=== PATIENT | female | born 2000 | race Caucasian/White ===

== ENCOUNTER 2022-01-21 07:00 | Observation (INO) | payer MEDICAID, OTHER ==
[~2022-01-21] VITALS: Ht 160 cm; Wt 57.2 kg
[2022-01-21] MEDS ORDERED: PREN1TAB79 PO (07:34)
[2022-01-21] MEDS ORDERED: ACET-2267 PO (07:35)
[2022-01-21 07:42] VITALS: BP 111/63
[2022-01-21 07:44] LABS: BILIRUBIN,URINE NEGATIVE (NEGATIVE); CLARITY,URINE CLOUDY; COLOR,URINE YELLOW; GLUCOSE, URINE (UA) NEGATIVE (NEGATIVE); KETONES,URINE NEGATIVE (NEGATIVE); LEUKOCYTE ESTERASE ,URINE 3+ (NEGATIVE); NITRITE,URINE POSITIVE (NEGATIVE); PROTEIN,URINE TRACE (NEGATIVE)
[2022-01-21 07:45] VITALS: BP 110/63
[2022-01-21 08:13] LABS: RBC,URINE 50-100 /HPF
[2022-01-21 08:14] LABS: AMORPHOUS SEDIMENT,UR LARGE AMOR URATES /LPF; BACTERIA,URINE LARGE /HPF; WBC,URINE 50-100 /HPF
[2022-01-21] MEDS ORDERED: ACETAMINOPHEN 500 MG TAB (TYLENOL) PO ONE (08:45)
[2022-01-21] MEDS ORDERED: IBUPROFEN 800 MG (MOTRIN) TAB PO ONE (08:45)
[2022-01-21 09:22] LABS: BASOPHILS # (AUTO) 0.1 10^3/uL (0.0-0.1); BASOPHILS % (AUTO) 0 % (0-10); EOSINOPHILS % (AUTO) 0 % (0-10); HEMATOCRIT 34 % (35-52); HEMOGLOBIN 11.6 g/dL (11.5-16.0); LYMPHOCYTES % (AUTO) 5 % (12-44); MEAN CORPUSCULAR HEMOGLOBIN 31 pg (25-34); MEAN CORPUSCULAR HGB CONC 34 g/dL (32-36); MEAN CORPUSCULAR VOLUME 92 fL (80-99); MONOCYTES # (AUTO) 0.6 10^3/uL (0.0-1.0); MONOCYTES % (AUTO) 3 % (0-12); NEUTROPHILS # (AUTO) 15.7 10^3/uL (1.8-7.8); NEUTROPHILS % (AUTO) 90 % (42-75); PLATELET COUNT 239 10^3/uL (130-400); WHITE BLOOD COUNT 17.5 10^3/uL (4.3-11.0)
[2022-01-21 09:25] LABS: BILIRUBIN,URINE NEGATIVE (NEGATIVE); CLARITY,URINE CLOUDY; COLOR,URINE YELLOW; GLUCOSE, URINE (UA) NEGATIVE (NEGATIVE); KETONES,URINE NEGATIVE (NEGATIVE); LEUKOCYTE ESTERASE ,URINE 1+ (NEGATIVE); NITRITE,URINE POSITIVE (NEGATIVE); PH,URINE 7.5 (5-9); PROTEIN,URINE TRACE (NEGATIVE)
[2022-01-21 09:41] LABS: BACTERIA,URINE FEW /HPF; RBC,URINE 50-100 /HPF
[2022-01-21 09:49] LABS: BAND NEUTROPHILS 0 %; LYMPHOCYTES % (MANUAL) 3 %; NEUTROPHILS % (MANUAL) 94 %
[2022-01-21 09:50] LABS: BASOPHILS % (MANUAL) 0 %; EOSINOPHILS % (MANUAL) 0 %; MONOCYTES % (MANUAL) 3 %; RBC MORPH NORMAL
[2022-01-21] MEDS ORDERED: D5 LR IV SOLUTION 1,000 ML IV SCH (10:00)
[2022-01-21] MEDS ORDERED: BUTORPHANOL INJ 2 MG/ML (STADOL) VIAL IV PRN (10:00)
[2022-01-21] MEDS ORDERED: ONDANSETRON 4 MG/2 ML (SDV) Z0FRAN IVP PRN (10:00)
[2022-01-21] MEDS ORDERED: ACETAMINOPHEN 500 MG TAB (TYLENOL) PO PRN (10:30)
[2022-01-21] MEDS: ceFAZolin INJECTION 1,000 MG in NS (IVPB) 50 ML IV SCH ×2 (11:00→17:15)
[2022-01-21 13:35] VITALS: BP 110/63
[2022-01-21] MEDS ORDERED: NITR-65 PO (14:44)
[2022-01-21 17:54] VITALS: BP 115/69
--- NOTE | 2022-01-24 10:19 | OB Triage Report ---
Standard Progress Note Progress Notes/Assess & Plan Date Seen by a Provider: Jan 21, 2022 Time Seen by a Provider: 15:00 Expected Date of Delivery: Apr 20, 2022 Gestational Age in Weeks: 27 Gestational Age in Days: 2 LMP/KIYA Comment: See progress/assessment Progress/Assessment & Plan This patient presented at 27 weeks gestation with complaint of pain pressure and back pain. She was found to have a hemorrhagic cystitis. She was treated with 1 dose of Ancef and then converted to Macrobid for discharge home with follow-up in clinic. Principal diagnosis was hemorrhagic cystitis in secondary diagnoses are 27 weeks gestation Patient was discharged with return to clinic instructions and with prescription for Macrobid 100 mg twice a day for 7 days Final Diagnosis 27 weeks gestation with hemorrhagic cystitis HUMBERTO GARBER MD Jan 24, 2022 10:19
== END 2022-01-21 18:08 | disposition home or self-care (01) ==
LOC: LDRP 07:00 → WSo 07:00 → LDRP 09:58
PROVIDERS: ADMIT Obstetrics & Gynecology; ATTEND Obstetrics & Gynecology
DX: O98.212 Gonorrhea complicating pregnancy, second trimester (principal); Z3A.27 27 weeks gestation of pregnancy
CPT/HCPCS: 36415; 81000; 85007; 85027; 87077; 87088; 87210

== ENCOUNTER 2022-04-17 22:23 | Inpatient (IN) | payer MEDICAID ==
[~2022-04-17] VITALS: Ht 162.6 cm; Wt 68.0 kg
[~2022-04-17 22:23] MED LIST: ACET-2267 PO; NITR-65 PO; PREN1TAB79 PO
[2022-04-17 22:45] VITALS: BP 153/87
[2022-04-17 23:00] VITALS: BP 153/87
[2022-04-17 23:12] LABS: BILIRUBIN,URINE NEGATIVE (NEGATIVE); CLARITY,URINE CLEAR; COLOR,URINE YELLOW; GLUCOSE, URINE (UA) NEGATIVE (NEGATIVE); KETONES,URINE NEGATIVE (NEGATIVE); LEUKOCYTE ESTERASE ,URINE TRACE (NEGATIVE); NITRITE,URINE NEGATIVE (NEGATIVE); PROTEIN,URINE NEGATIVE (NEGATIVE)
[2022-04-17] MEDS ORDERED: LIDOCAINE/EPI 2% 1:200,00 (XYLOCAINE) 10 ML VIAL INJ PRN (23:15)
[2022-04-17 23:27] LABS: RBC,URINE RARE /HPF
[2022-04-17 23:28] LABS: BACTERIA,URINE NEGATIVE /HPF
[2022-04-17 23:41] LABS: BASOPHILS % (AUTO) 0 % (0-10); EOSINOPHILS # (AUTO) 0.1 10^3/uL (0.0-0.3); EOSINOPHILS % (AUTO) 1 % (0-10); HEMATOCRIT 32 % (35-52); HEMOGLOBIN 10.5 g/dL (11.5-16.0); LYMPHOCYTES # (AUTO) 1.3 10^3/uL (1.0-4.0); LYMPHOCYTES % (AUTO) 7 % (12-44); MEAN CORPUSCULAR HEMOGLOBIN 29 pg (25-34); MEAN CORPUSCULAR HGB CONC 33 g/dL (32-36); MEAN CORPUSCULAR VOLUME 88 fL (80-99); MEAN PLATELET VOLUME 10.1 fL (9.0-12.2); MONOCYTES # (AUTO) 0.8 10^3/uL (0.0-1.0); MONOCYTES % (AUTO) 5 % (0-12); NEUTROPHILS # (AUTO) 14.9 10^3/uL (1.8-7.8); NEUTROPHILS % (AUTO) 86 % (42-75); PLATELET COUNT 236 10^3/uL (130-400); WHITE BLOOD COUNT 17.2 10^3/uL (4.3-11.0)
[2022-04-18] VITALS (68 sets, daily range): BP systolic 112–177; BP diastolic 59–94
[2022-04-18] MEDS ORDERED: fentaNYL 2 mcg/ml BUPIVA 0.125 100 ML ONE (00:06)
[2022-04-18] MEDS: D5 LR IV SOLUTION 1,000 ML IV SCH ×2 (00:13→08:01)
[2022-04-18] MEDS ORDERED: BUPIVACAINE 0.25% 10 ML (SENSORCAINE) VIAL ONE (00:22)
[2022-04-18] MEDS ORDERED: fentaNYL INJ 100 MCG/2 ML AMP ONE (00:23)
[2022-04-18] MEDS ORDERED: LACTATED RINGERS 1,000 ML IV ONE ×2 (01:00)
[2022-04-18] MEDS ORDERED: NALOXONE 0.4 MG/ML 1 ML (NARCAN) VIAL IV PRN ×2 (01:00→13:15)
[2022-04-18] MEDS ORDERED: fentaNYL INJ 100 MCG/2 ML AMP INJ ONE (01:00)
[2022-04-18] MEDS ORDERED: ONDANSETRON 4 MG/2 ML (SDV) Z0FRAN IV PRN (01:00)
[2022-04-18] MEDS: fentaNYL 2 mcg/ml BUPIVA 0.125 100 ML EPI SCH ×2 (01:03→09:03)
[2022-04-18] MEDS ORDERED: OXYTOCIN PRE-MIX DRIP 500 ML IV ONE (08:03)
[2022-04-18] MEDS ORDERED: LIDOCAINE 1% INJ 10 ML VIAL ONE (08:04)
[2022-04-18] MEDS ORDERED: FLU QUADRIvalent (6 months+) 60 mcg/0.5 ml 2022-23 (Fluzone) IM ONE (08:30)
[2022-04-18] MEDS: CATHETER FLUSH 10 ML SYR IV SCH ×2 (09:28→14:15)
--- NOTE | 2022-04-18 09:44 | History & Physical-OB/GYN ---
MAGDALENA SELLERS 04/18/22 0944: OB - Chief Complaint & HPI Date/Time Date of Admission: Date of Admission: Apr 17, 2022 at 22:56 Date seen by a Provider: Apr 18, 2022 Time Seen by a Provider: 09:40 Chief Complaint/History OB-Reason for Admission/Chief: Onset of Labor Hx : 3 Hx Para: 0 Expected Date of Delivery: Apr 20, 2022 Gestational Age in Weeks: 39 Gestational Age in Days: 4 Allergies and Home Medications Allergies Coded Allergies: No Known Drug Allergies (Unverified , 01/21/22) Patient Home Medication List Home Medication List Reviewed: Yes Acetaminophen (Tylenol Extra Strength) 500 Mg Tablet, 1,000 MG PO PRN, (Reported) Entered as Reported by: TAMMY MARTINEZ on 01/21/22 0735 Nitrofurantoin Monohyd/M-Cryst (Macrobid 100 mg Capsule) 100 Mg Capsule, 1 TAB PO BID Prescribed by: TAMYM MARTINEZ on 01/21/22 1444 Vit W-Ca,Fe,FA(<1 mg) ( Vitamins) 27 Mg Iron-800 Mcg Tablet, 1 EACH PO DAILY, (Reported) Entered as Reported by: TAMMY MARTINEZ on 01/21/22 0734 OB - History Hx of Present Care: Yes Obstetrical Complications: None Medical Complications: None Social History/Family History 2nd Hand Smoke Exposure: No Immunizations Influenza Vaccine Up-to-Date: No; Not Current OB - Admission Exam Physical Exam Vitals: Vital Signs 04/18/22 04/18/22 02:00 09:00 Temp 37.2 Pulse 82 Resp 18 B/P (MAP) 136/80 (98) Pulse Ox 98 O2 Delivery Room Air HEENT: NCAT Heart: Rhythm Normal Lungs: Clear Abdomen: Gravid Cervical Dilatation: 5cm Effacement: 75% Station: 0 Membranes: Intact Accelerations: Accelerations Present Decelerations: Variable Decelerations Labs Laboratory Tests Test 04/17/22 22:35 04/17/22 23:20 Range/Units Urine Color YELLOW Urine Clarity CLEAR Urine pH 7.0 5-9 Urine Specific [place] 1.025 H 1.016-1.022 Urine Protein NEGATIVE NEGATIVE Urine Glucose (UA) NEGATIVE NEGATIVE Urine Ketones NEGATIVE NEGATIVE Urine Nitrite NEGATIVE NEGATIVE Urine Bilirubin NEGATIVE NEGATIVE Urine Urobilinogen 1.0 < = 1.0 MG/DL Urine Leukocyte Esterase TRACE H NEGATIVE Urine RBC (Auto) 2+ H NEGATIVE Urine RBC RARE /HPF Urine WBC 2-5 /HPF Urine Squamous Epithelial Cells 2-5 /HPF Urine Crystals NONE /LPF Urine Bacteria NEGATIVE /HPF Urine Casts NONE /LPF Urine Mucus NEGATIVE /LPF Urine Culture Indicated YES White Blood Count 17.2 H 4.3-11.0 10^3/uL Red Blood Count 3.66 L 3.80-5.11 10^6/uL Hemoglobin 10.5 L 11.5-16.0 g/dL Hematocrit 32 L 35-52 % Mean Corpuscular Volume 88 80-99 fL Mean Corpuscular Hemoglobin 29 25-34 pg Mean Corpuscular Hemoglobin Concent 33 32-36 g/dL Red Cell Distribution Width 14.6 H 10.0-14.5 % Platelet Count 236 130-400 10^3/uL Mean Platelet Volume 10.1 9.0-12.2 fL Immature Granulocyte % (Auto) 1 % Neutrophils (%) (Auto) 86 H 42-75 % Lymphocytes (%) (Auto) 7 L 12-44 % Monocytes (%) (Auto) 5 0-12 % Eosinophils (%) (Auto) 1 0-10 % Basophils (%) (Auto) 0 0-10 % Neutrophils # (Auto) 14.9 H 1.8-7.8 10^3/uL Lymphocytes # (Auto) 1.3 1.0-4.0 10^3/uL Monocytes # (Auto) 0.8 0.0-1.0 10^3/uL Eosinophils # (Auto) 0.1 0.0-0.3 10^3/uL Basophils # (Auto) 0.0 0.0-0.1 10^3/uL Immature Granulocyte # (Auto) 0.1 0.0-0.1 10^3/uL OB - Assessment/Plan/Diagnosis Assessment Assessment: active labor Admission Dx 22 yo at 39.4 wga Active labor GBS negative Admission Status: Inpatient Order (span 2 midnights) Reason for Inpatient Admission: Active labor at 39 weeks Plan Plan: Expectant Management (AROM) Supervisory-Addendum Brief Verification & Attestation Participated in pt care: history, MDM, physical Personally performed: history, MDM Care discussed with: Medical Student Verification and Attestation of Medical Student E/M Service A medical student performed and documented this service in my presence. I reviewed and verified all information documented by the medical student and made modifications to such information, when appropriate. I personally performed the physical exam and medical decision making. BLAYNE CROCKETT DO 04/18/22 1309: OB - Chief Complaint & HPI Chief Complaint/History Admission Nurse Assessment Rev: Yes Allergies and Home Medications Allergies Coded Allergies: No Known Drug Allergies (Unverified , 01/21/22) Patient Home Medication List Acetaminophen (Tylenol Extra Strength) 500 Mg Tablet, 1,000 MG PO PRN, (Reported) Entered as Reported by: TAMMY MARTINEZ on 01/21/22 0735 Nitrofurantoin Monohyd/M-Cryst (Macrobid 100 mg Capsule) 100 Mg Capsule, 1 TAB PO BID Prescribed by: TAMMY MARTINEZ on 01/21/22 1444 Vit W-Ca,Fe,FA(<1 mg) ( Vitamins) 27 Mg Iron-800 Mcg Tablet, 1 EACH PO DAILY, (Reported) Entered as Reported by: TAMMY MARTINEZ on 01/21/22 0734 OB - History Patient Past Medical History na Supervisory-Addendum Brief Verification & Attestation Procedures: n/a Results interpretation: Verified all documentation Verification and Attestation of Medical Student E/M Service A medical student performed and documented this service in my presence. I reviewed and verified all information documented by the medical student and made modifications to such information, when appropriate. I personally performed the physical exam and medical decision making. Blayne Crockett, Apr 18, 2022,13:09 MAGDALENA SELLERS Apr 18, 2022 09:44 BLAYNE CROCKETT DO Apr 18, 2022 13:09
--- NOTE | 2022-04-18 13:13 | OB Labor & Delivery Record ---
L&D History Date of Service Date of Service: Apr 18, 2022 History Expected Date of Delivery: Apr 20, 2022 Gestational Age in Weeks: 39 Hx : 3 Hx Para: 0 Complications Events: Routine care Operative Indications (Cesarea: N/A-Vaginal Delivery Intrapartal Events: None L&D Stage1 Stage One Onset of Labor - Date: Apr 18, 2022 Monitors and Tracing Monitor Mode: External Heart Rate: 135 Station: 0 Vital Signs VS - Last 72 Hours, by Label 04/17/22 04/17/22 04/18/22 04/18/22 22:45 23:00 00:00 00:30 Temp 36.7 36.7 Pulse 83 83 86 Resp 18 18 18 18 B/P (MAP) 153/87 (109) 128/87 (101) Pulse Ox 97 O2 Delivery Room Air 04/18/22 04/18/22 04/18/22 04/18/22 00:33 00:36 00:39 00:42 Pulse 93 91 101 84 Resp 18 18 18 18 B/P (MAP) 136/88 (104) 134/91 (105) 131/88 (102) 133/85 (101) Pulse Ox 99 98 98 98 O2 Delivery Room Air Room Air Room Air Room Air 04/18/22 04/18/22 04/18/22 04/18/22 00:45 00:48 00:50 00:55 Pulse 85 82 89 89 Resp 18 18 18 18 B/P (MAP) 131/86 (101) 128/87 (101) 133/89 (104) 132/87 (102) Pulse Ox 98 98 97 96 O2 Delivery Room Air Room Air Room Air Room Air 04/18/22 04/18/22 04/18/22 04/18/22 00:58 01:00 01:15 01:30 Temp 36.6 Pulse 87 80 77 79 Resp 18 18 18 18 B/P (MAP) 129/83 (98) 130/84 (99) 137/90 (106) 123/78 (93) Pulse Ox 96 97 97 97 O2 Delivery Room Air Room Air Room Air Room Air 04/18/22 04/18/22 04/18/22 04/18/22 01:45 02:00 02:15 02:30 Pulse 74 72 74 74 Resp 18 18 18 18 B/P (MAP) 126/81 (96) 129/82 (98) 131/93 (106) 123/82 (96) Pulse Ox 97 98 O2 Delivery Room Air Room Air Room Air Room Air 04/18/22 04/18/22 04/18/22 04/18/22 02:45 03:00 03:15 03:30 Pulse 76 70 73 66 Resp 18 18 18 18 B/P (MAP) 120/73 (89) 117/67 (84) 114/68 (83) 122/72 (89) O2 Delivery Room Air Room Air Room Air Room Air 04/18/22 04/18/22 04/18/22 04/18/22 03:45 04:00 04:15 04:30 Pulse 75 71 85 76 Resp 18 18 18 18 B/P (MAP) 119/71 (87) 121/72 (88) 125/88 (100) 129/80 (96) O2 Delivery Room Air Room Air Room Air Room Air 04/18/22 04/18/22 04/18/22 04/18/22 04:45 05:00 05:15 05:30 Temp 36.8 Pulse 87 88 92 85 Resp 18 18 18 18 B/P (MAP) 129/85 (100) 134/83 (100) 131/94 (106) 128/92 (104) O2 Delivery Room Air Room Air Room Air Room Air 04/18/22 04/18/22 04/18/22 04/18/22 05:45 06:00 06:15 06:30 Pulse 80 80 78 83 Resp 18 18 18 18 B/P (MAP) 116/78 (91) 121/82 (95) 118/78 (91) 122/81 (95) O2 Delivery Room Air Room Air Room Air Room Air 04/18/22 04/18/22 04/18/22 04/18/22 06:45 07:00 07:15 07:30 Temp 36.8 Pulse 88 80 87 92 Resp 18 18 18 18 B/P (MAP) 112/71 (85) 123/81 (95) 133/89 (104) 125/86 (99) O2 Delivery Room Air Room Air Room Air Room Air 04/18/22 04/18/22 04/18/22 04/18/22 07:45 08:00 08:15 08:30 Pulse 80 91 87 81 Resp 18 18 18 18 B/P (MAP) 127/83 (98) 134/90 (105) 132/86 (101) 140/86 (104) O2 Delivery Room Air Room Air Room Air Room Air 04/18/22 04/18/22 04/18/22 04/18/22 08:45 09:00 09:15 09:30 Temp 37.2 Pulse 83 82 86 81 Resp 18 18 18 18 B/P (MAP) 135/85 (102) 136/80 (98) 127/81 (96) 125/80 (95) O2 Delivery Room Air Room Air Room Air Room Air 04/18/22 04/18/22 04/18/22 04/18/22 09:45 10:00 10:15 10:30 Pulse 89 78 85 76 Resp 18 18 18 18 B/P (MAP) 122/84 (97) 126/77 (93) 138/60 (86) 116/71 (86) O2 Delivery Room Air Room Air Room Air Room Air 04/18/22 04/18/22 04/18/22 04/18/22 10:45 11:00 11:15 11:30 Temp 37.0 Pulse 72 75 88 73 Resp 18 18 18 18 B/P (MAP) 119/74 (89) 117/70 (86) 123/77 (92) 124/75 (91) O2 Delivery Room Air Room Air Room Air Room Air 04/18/22 04/18/22 11:45 12:00 Pulse 69 69 Resp 18 18 B/P (MAP) 130/76 (94) 127/78 (94) O2 Delivery Room Air Room Air Rupture of Membranes Spontaneous Ruture of Membrane: No Amniotic Membrane Rupture Time: 711 Amniotic Membrane Fluid Desc.: Clear Vaginal Bleeding Description: Normal Show Induction/Anesthesia Epidural Cath Placement - Time: 003 Progress/Notes Patient admitted in active labor, received epidural after admission, AROM performed this AM at 7 cm dialation. She progressed with no further augmentation to complete and + 2 station, when patient was encouraged to push. L&D Stage2 Stage Two Stage II Date: Apr 18, 2022 Monitors and Tracing Monitor Mode: External Heart Rate: 135 Position: Right Occiput Anterior Cord Descript/Complications Cord Vessel Description: 3 Vessels Delivery Type Delivery Method: Spontaneous Vaginal Anterior Shoulder: Left Episiotomy/Perineal Laceration Laceraction(s)/Extensions: Yes Episiotomy Description: Vaginal Extension/lac, 2nd degree Degree (describe repair) 2nd degree vaginal and left periurethral laceration repaired using 3-0 rapide vicryl suture in usual fashion. Condition of Infant Delivery 1 minute Comment: 8 5 minute Comment: 9 Notes Live male infant weight 7lbs 4 oz Condition of Condition of Infant: Living Exam: No Observed Abnormalities Resuscitation Resuscitation: N/A - Spontaneous Resp L&D Stage3 Stage Three Stage III Date: Apr 18, 2022 Pictocin Pitocin Administration Comment: 30 mu wide open after delivery of placenta Placenta Delivery Placenta Delivery: Spontaneous Delivery Summary Summary Estimated blood loss (mL): 350 Attending at delivery: Erlin Crockett DO Condition of Delivery Examined: Cervix Examined, Uterus Explored Post Hemorrhage: No Condition of Mother stable Condition of (s) stable ERLIN CROCKETT DO Apr 18, 2022 13:13
[2022-04-18] MEDS ORDERED: BENZOCAINE/MENTHOL (DERMOPLAST) 56 ML CAN TP PRN (13:15)
[2022-04-18] MEDS ORDERED: DIBUCAINE 1% OINTMENT 28 GM TUBE TOP PRN (13:15)
[2022-04-18] MEDS ORDERED: MEASLES,MUMPS,RUBELLA 1 EA INJ SQ ONE (13:15)
[2022-04-18] MEDS ORDERED: HYDROcodone/APAP 5 MG/325 MG (LORTAB) TAB PO PRN (13:15)
[2022-04-18] MEDS ORDERED: WITCH HAZEL(TUCKS) 40 EA JAR TOP PRN (13:15)
[2022-04-18] MEDS ORDERED: TETANUS,DIPTH,PERTUSS P/F (BOOSTRIX) 0.5 ML VIAL IM ONE (13:15)
[2022-04-18] MEDS: OXYTOCIN PRE-MIX DRIP 500 ML IV SCH ×2 (13:38→13:46)
[2022-04-18] MEDS: IBUPROFEN 600 MG (MOTRIN) TAB PO SCH ×2 (13:57→19:25)
[2022-04-18] MEDS ORDERED: CATHETER FLUSH 10 ML SYR IV SCH (14:00)
[2022-04-18] MEDS: DOCUSATE SODIUM 100 MG (COLACE) CAP PO SCH (21:59)
[2022-04-19 01:25] VITALS: BP 115/64
[2022-04-19] MEDS: IBUPROFEN 600 MG (MOTRIN) TAB PO SCH ×3 (01:25→13:43)
[2022-04-19 05:45] VITALS: BP 101/56
[2022-04-19 05:54] LABS: BASOPHILS # (AUTO) 0.1 10^3/uL (0.0-0.1); BASOPHILS % (AUTO) 0 % (0-10); EOSINOPHILS # (AUTO) 0.2 10^3/uL (0.0-0.3); EOSINOPHILS % (AUTO) 1 % (0-10); HEMATOCRIT 25 % (35-52); LYMPHOCYTES # (AUTO) 1.9 10^3/uL (1.0-4.0); LYMPHOCYTES % (AUTO) 11 % (12-44); MEAN CORPUSCULAR HGB CONC 32 g/dL (32-36); MEAN CORPUSCULAR VOLUME 89 fL (80-99); MONOCYTES # (AUTO) 0.9 10^3/uL (0.0-1.0); MONOCYTES % (AUTO) 5 % (0-12); NEUTROPHILS # (AUTO) 13.8 10^3/uL (1.8-7.8); NEUTROPHILS % (AUTO) 82 % (42-75); PLATELET COUNT 180 10^3/uL (130-400)
[2022-04-19 06:07] LABS: MEAN CORPUSCULAR HEMOGLOBIN 28 pg (25-34)
[2022-04-19] MEDS ORDERED: PRENATAL VITAMIN 1 EA TAB PO SCH (07:00)
[2022-04-19 08:02] VITALS: BP 111/70
[2022-04-19] MEDS: DOCUSATE SODIUM 100 MG (COLACE) CAP PO SCH (08:02)
--- NOTE | 2022-04-19 08:36 | Postpartum Progress Note ---
Note Note Day # 1 Subjective: Patient is without complaints. Ambulating, voiding. Tolerating a regular diet without nausea or vomiting. Normal lochia. Pain is well controlled with oral pain medications. Objective: Physical Exam: General - Alert and oriented, no apparent distress Abdomen - Soft, appropriately tender to palpation, non-distended, fundus firm at umbilicus Extremities - no edema, negative Deborah's bilaterally Assessment: PPD 1 NVD Acute blood loss anemia Plan: Routine care. Encourage breast feeding. Encourage ambulation. Ferrous sulfate supplementation. Plan for discharge today Vitals - Labs Vital Signs - I&O Vital Signs Date Time Temp Pulse Resp B/P (MAP) Pulse Ox O2 Delivery O2 Flow Rate FiO2 04/19/22 08:02 36.1 75 18 111/70 (84) 99 Room Air 04/19/22 05:45 36.3 86 18 101/56 (71) 98 Room Air 04/19/22 01:25 36.4 89 18 115/64 (81) 98 Room Air 04/18/22 21:59 37.0 94 18 129/82 (98) 97 Room Air 04/18/22 15:37 100 18 128/65 (86) Room Air 04/18/22 15:07 103 18 132/73 (92) Room Air 04/18/22 14:37 104 18 118/69 (85) Room Air 04/18/22 14:22 101 18 118/74 (89) Room Air 04/18/22 14:07 103 18 121/87 (98) Room Air 04/18/22 13:52 93 18 125/67 (86) Room Air 04/18/22 13:37 36.7 99 18 119/65 (83) Room Air 04/18/22 13:22 101 18 140/59 (86) Room Air 04/18/22 13:08 37.3 113 18 155/74 (101) Room Air 04/18/22 12:54 107 18 134/76 (95) Room Air 04/18/22 12:51 Non Rebreather 15.00 04/18/22 12:45 113 18 139/78 (98) Room Air 04/18/22 12:30 Room Air 04/18/22 12:15 87 18 126/76 (93) Room Air 04/18/22 12:00 69 18 127/78 (94) Room Air 04/18/22 11:45 69 18 130/76 (94) Room Air 04/18/22 11:30 73 18 124/75 (91) Room Air 04/18/22 11:15 37.0 88 18 123/77 (92) Room Air 04/18/22 11:00 75 18 117/70 (86) Room Air 04/18/22 10:45 72 18 119/74 (89) Room Air 04/18/22 10:30 76 18 116/71 (86) Room Air 04/18/22 10:15 85 18 138/60 (86) Room Air 04/18/22 10:00 78 18 126/77 (93) Room Air 04/18/22 09:45 89 18 122/84 (97) Room Air 04/18/22 09:30 81 18 125/80 (95) Room Air 04/18/22 09:15 86 18 127/81 (96) Room Air 04/18/22 09:00 37.2 82 18 136/80 (98) Room Air 04/18/22 08:45 83 18 135/85 (102) Room Air I & O 04/19/22 07:00 Intake Total 1200 ml Output Total 600 ml Balance 600 ml Labs Laboratory Tests 04/19/22 05:43: White Blood Count 17.0H, Red Blood Count 2.81L, Hemoglobin 8.0#L, Hematocrit 25L , Mean Corpuscular Volume 89, Mean Corpuscular Hemoglobin 28, Mean Corpuscular Hemoglobin Concent 32, Red Cell Distribution Width 15.2H, Platelet Count 180, Mean Platelet Volume 10.0, Immature Granulocyte % (Auto) 1, Neutrophils (%) (Au to) 82H, Lymphocytes (%) (Auto) 11L, Monocytes (%) (Auto) 5, Eosinophils (%) (Auto) 1, Basophils (%) (Auto) 0, Neutrophils # (Auto) 13.8H, Lymphocytes # (Auto) 1.9, Monocytes # (Auto) 0.9, Eosinophils # (Auto) 0.2, Basophils # (Auto) 0.1, Immature Granulocyte # (Auto) 0.1 ERLIN CROCKETT DO Apr 19, 2022 08:36
--- NOTE | 2022-04-19 08:36 | Discharge Inst-Women's Service ---
Discharge Inst-Women's Serv Depart Medication/Instructions New, Converted or Re-Newed RX: Transmitted to Pharmacy Final Diagnosis ppd 1 nvd Problems Reviewed?: Yes Consults/Follow Up Additional Follow Up: Yes Orders/Referrals Dr. Crockett in 6 weeks Activity Activity: Activity as Tolerated Driving Instructions: No Driving for 1 Week NO SMOKING: NO SMOKING Nothing Inside Vagina: No Douching, No Colstrip, No Tampons Diet Discharge Diet: No Restrictions Symptoms to Report to : Bleeding Excessive, Pain Increased, Fever Over 101 Degrees F, Vaginal Bleeding Increase, Questions/Concerns For Any Problems or Questions: Contact Your Physician ERLIN CROCKETT DO Apr 19, 2022 08:36
[2022-04-19] MEDS ORDERED: FERR325T24 PO (08:38)
[2022-04-19] MEDS ORDERED: DIBU30OI TOP (08:38)
[2022-04-19] MEDS ORDERED: DOCU100C37 PO (08:38)
[2022-04-19] MEDS ORDERED: BENZ78AE5 TP (08:38)
[2022-04-19] MEDS ORDERED: IBUP-844 PO (08:38)
[2022-04-19] MEDS ORDERED: FERROUS SULF 325 MG (IRON) TAB PO SCH (09:00)
[2022-04-19 13:40] VITALS: BP 131/86
[2022-04-19] MEDS ORDERED: FLU QUADRIvalent (6 months+) 60 mcg/0.5 ml 2022-23 (Fluzone) IM ONE (15:22)
== END 2022-04-19 16:05 | disposition home or self-care (01) | DRG 806 ==
LOC: LDRP 22:23 → WSo 22:23 → LDRP 22:56
PROVIDERS: ADMIT Obstetrics & Gynecology; ATTEND Obstetrics & Gynecology
PROC: 10E0XZZ Delivery of Products of Conception, External Approach (ICD-10-PCS; principal; 2022-04-18)
PROC: 0KQM0ZZ Repair Perineum Muscle, Open Approach (ICD-10-PCS; 2022-04-18)
PROC: 0UQMXZZ Repair Vulva, External Approach (ICD-10-PCS; 2022-04-18)
DX: O70.1 Second degree perineal laceration during delivery (principal); D62 Acute posthemorrhagic anemia; Z37.0 Single live birth; O71.82 Other specified trauma to perineum and vulva; Z3A.39 39 weeks gestation of pregnancy; O90.81 Anemia of the puerperium; Z23 Encounter for immunization
CPT/HCPCS: 36415; 81000; 85025; 86780; 86850; 86900; 86901; 87088; 90686; 99212